=== PATIENT | male | born 1945 | race Caucasian/White ===

== ENCOUNTER 2022-10-22 13:38 | Outpatient (CLI) | payer MEDICARE ==
[~2022-10-22 13:38] MED LIST: ATOR10TA87 PO; CELE-193 PO; PANT40TA39 PO; VALS40TA2 PO
== END 2022-10-22 23:59 | disposition home or self-care (01) ==
LOC: RAD 13:38
PROVIDERS: ATTEND Otolaryngology
DX: R13.14 Dysphagia, pharyngoesophageal phase (principal); R13.12 Dysphagia, oropharyngeal phase; R49.0 Dysphonia; K21.9 Gastro-esophageal reflux disease without esophagitis; G24.9 Dystonia, unspecified
CPT/HCPCS: 74230